=== PATIENT | male | born 1960 | race Caucasian/White ===

== ENCOUNTER 2023-06-20 14:38 | Outpatient (CLI) | payer OTHER, SELFPAY ==
--- NOTE | 2023-06-20 | USR_ITS ---
PROCEDURE INFORMATION: Exam: US Duplex Bilateral Lower Extremity Arteries Exam date and time: 06/20/2023 3:24 PM Age: 63 years old Clinical indication: Other: Discoloration of le; Additional info: Le pain TECHNIQUE: Imaging protocol: Real-time ultrasound scan of the arteries of the bilateral lower extremities with 2-D joshi scale, color Doppler flow and spectral waveform analysis. Images documented and saved. COMPARISON: No relevant prior studies available. FINDINGS: Right common femoral artery: No occlusion or significant stenosis. Normal waveform. Right superficial femoral artery: No occlusion or significant stenosis. Normal waveform. Right popliteal artery: No occlusion or significant stenosis. Normal waveform. Right calf/foot arteries: No occlusion or significant stenosis in the visualized arteries. Normal waveforms. Dorsalis pedis artery is patent. Left common femoral artery: No occlusion or significant stenosis. Normal waveform. Left superficial femoral artery: No occlusion or significant stenosis. Normal waveform. Left popliteal artery: No occlusion or significant stenosis. Normal waveform. Left calf/foot arteries: No occlusion or significant stenosis in the visualized arteries. Normal waveforms. Dorsalis pedis artery [place] patent. US/[place] [id number] IMPRESSION: No stenosis or occlusion.
== END 2023-06-20 14:39 | disposition home or self-care (01) ==
LOC: RAD 14:38
PROVIDERS: Family Provider Family Medicine; Visit Provider Family Medicine
DX: M79.662 Pain in left lower leg (principal); M79.661 Pain in right lower leg
CPT/HCPCS: 93925

== ENCOUNTER 2023-09-18 20:00 | Outpatient (CLI) | payer OTHER, SELFPAY | END 2023-09-18 20:01 | disposition home or self-care (01) | LOC: SLEEP 09-19 05:49 | PROVIDERS: Family Provider Family Medicine; Visit Provider Family Medicine | DX: G47.33 Obstructive sleep apnea (adult) (pediatric) (principal); R09.02 Hypoxemia; G47.61 Periodic limb movement disorder | CPT/HCPCS: 95810 ==

== ENCOUNTER → 2024-01-14 09:00 | Outpatient (BNVA) | payer OTHER, SELFPAY | PROVIDERS: Family Provider Family Medicine; PCP Family Medicine; Visit Provider Podiatrist Foot & Ankle Surgery | DX: Q82.8 Other specified congenital malformations of skin (principal); M77.42 Metatarsalgia, left foot | CPT/HCPCS: 99203 ==

== ENCOUNTER → 2024-05-27 13:07 | Outpatient (BNVA) | payer OTHER, SELFPAY | PROVIDERS: Family Provider Family Medicine; PCP Family Medicine; Visit Provider Surgery | DX: Z12.11 Encounter for screening for malignant neoplasm of colon (principal) | CPT/HCPCS: 99203 ==

== ENCOUNTER 2024-07-02 06:39 | Day surgery (SDC) | payer OTHER, SELFPAY ==
--- NOTE | 2024-07-02 05:51 | W.PM.OPSFHP ---
Same Day Surgery H&P Indication for Procedure/HPI DATE OF PROCEDURE: July 02, 2024 CHIEF COMPLAINT/INDICATIONFOR SURGICAL PROCEDURE: need for screening colonoscopy PREOP DIAGNOSIS: need for screening colonoscopy PLANNED PROCEDURE: Operation Date: 07/02/24 07:40 Proposed Procedures p Colonoscopy 76830, G0105, Z12.11(Not Applicable) - Diego Castro MD Medications/Allergies* Allergies/Adverse Reactions Allergy/AdvReac Type Severity Reaction Status Date / Time Penicillins Allergy stomach Verified 05/27/24 13:10 issues Sulfa (Sulfonamide Allergy rash Verified 05/27/24 13:10 Antibiotics) Pertinent History/Comorbid Conditions* Social History Smoking and tobacco/nicotine status: never used tobacco/nicotine Pertinent Exam Findings alert, oriented x 3 and clear to auscultation bilaterally Recommendations Surgery/Procedure today Coding Level of Care Code Acute Code for Chg Fwd
[2024-07-02 06:47] VITALS: BP 132/87; PULSE 83; RESP 18; TEMP 36.2; O2SAT 97; BMI 41.3
--- NOTE | 2024-07-02 07:00 | ANES.PREANE2 ---
Pre-Anesthetic Assessment Height/Weight: Height 1.83 m Weight 138.346 kg Temp Pulse Resp BP Pulse Ox O2 Del Method 97.2 F L 83 18 132/87 97 Room Air 07/02/24 06:47 07/02/24 06:47 07/02/24 06:47 07/02/24 06:47 07/02/24 06:47 07/02/24 06:47 Preop Diagnosis: need for screening colonoscopy Operation Date: 07/02/24 07:40 Proposed Procedures p Colonoscopy 30563, G0105, Z12.11(Not Applicable) - Diego Castro MD Was Beta Omar taken within 24 hours: N/A Was Clonidine taken within 24 hours: N/A Last intake: Intake Last Liquid Date 07/01/24 Last Liquid Time 21:00 Last Solid Date 06/30/24 Last Solid Time 18:00 Social No alcohol and No tobacco Exam alert and oriented x 3 Airway Submandibular: within normal limits Cervical ROM: within normal limits Mallampati: Class III Dentition: full History/ROS No significant history except as noted Pulmonary Sleep Apnea (Cpap used) CV/HEM None reported None reported Hepatic None reported GI None reported Metabolic Diabetes Mellitus ([id number] controlled) and Morbid Obesity Musc/skel None reported Neuropsych None reported Anesthetic Plan ASA status: 2 Anesthesia: MAC Risk of > 500 ml blood loss (7ml/kg in children): No Medications/Allergies Home Medications Medication Instructions Recorded Confirmed Last Taken Type No Known Home Medications 07/02/24 07/02/24 Unknown History Allergies Allergy/AdvReac Type Severity Reaction Status Date / Time Penicillins Allergy stomach Verified 07/02/24 06:48 issues Sulfa (Sulfonamide Allergy rash Verified 07/02/24 06:48 Antibiotics) [facility] Anesthesia Social History Smoking and tobacco/nicotine status: never used tobacco/nicotine Data Anesthesia Cardiac Studies: No Data to Display
[2024-07-02] MEDS: sodium chloride 0.9% 1,000 ML 30 ML IV (07:04)
[2024-07-02 08:03] VITALS: BP 92/62; PULSE 73; RESP 18; TEMP 36.1; O2SAT 93
[2024-07-02 08:25] VITALS: BP 123/72; PULSE 70; RESP 17; O2SAT 95
--- NOTE | 2024-07-02 08:30 | ANE.PACU2 ---
Inpatient post-anesthesia follow up: Airway intact: Yes Vital signs: Temperature 97.0 F Pulse Rate 70 Respiratory Rate 17 Blood Pressure 123/72 Pulse Oximetry 95 Oxygen Delivery Me thod Room Air Oxygen Flow Rate Fraction of Inspir ed Oxygen Hydration adequate: Yes Nausea and vomiting: No Pain level: 1 Mental status: Baseline
== END 2024-07-02 08:34 | disposition home or self-care (01) ==
PROVIDERS: Family Provider Family Medicine; PCP Family Medicine; Visit Provider Surgery
PROC: 0DJD8ZZ Inspection of Lower Intestinal Tract, Via Natural or Artificial Opening Endoscopic (ICD-10-PCS; CPT 45378; principal; 2024-07-02 07:40)
DX: Z12.11 Encounter for screening for malignant neoplasm of colon (principal); D12.8 Benign neoplasm of rectum; K57.30 Diverticulosis of large intestine without perforation or abscess without bleeding; G47.30 Sleep apnea, unspecified; E11.9 Type 2 diabetes mellitus without complications; E66.01 Morbid (severe) obesity due to excess calories; Z68.41 Body mass index [BMI] 40.0-44.9, adult
CPT/HCPCS: 45380; 88305; J2704; J7030

== ENCOUNTER → 2024-07-14 08:27 | Outpatient (BNVA) | payer OTHER, SELFPAY | PROVIDERS: Family Provider Family Medicine; PCP Family Medicine; Visit Provider Surgery | DX: Z09 Encounter for follow-up examination after completed treatment for conditions other than malignant neoplasm (principal); R03.0 Elevated blood-pressure reading, without diagnosis of hypertension | CPT/HCPCS: 99213 ==